=== PATIENT | male | born 2000 | race Caucasian/White ===

== ENCOUNTER 2025-01-31 08:38 | Outpatient (AMB) | payer OTHER, SELFPAY ==
--- NOTE | 2025-01-31 08:40 | A.OFFVIS_ITS ---
Vital Signs 01/31/25 08:50 Height 5 ft 10 in Weight 134 lb 14.766 oz BMI 19.4 BP 115/66 Blood Pressure Location Lt brachial Position Sitting Pulse 84 Pulse Source Pulse Oximeter Intake Visit Reasons: Diarrhea & Gerd Intake Note: Patient new consult for GERD and diarrhea. Patient cc: Physical Testing Supervisor Required: No Accompanied by: Self / Same As Patient Allergies No Known Allergies Allergy (Verified 01/08/25 15:41) Medication List - Last Reconciled 01/31/25 by Romy Klein CNP famotidine 20 mg PO BEDTIME HPI HPI Diarrhea & Gerd: Details: Patient is a 24-year-old male with PMH of acne. Referred by PCP for further evaluation of GERD and diarrhea. Gastroesophageal Reflux Disease (GERD): The GERD symptoms began around six months ago after recovering from a respiratory illness and bronchitis. Symptoms include sharp central chest pain, throat discomfort, mucus expectoration, and previous regurgitation episodes. Famotidine has reduced symptoms, leading to improved appetite and less nausea. Diarrhea: The patient has a life long history of inconsistent bowel patterns with current complaints of mild constipation ( type 2-3) alternating with diarrhea ( Type 6), particularly since the events six months ago. He experiences occasional stomach pain that typically decreases after bowel movements and benefits from diet modification, specifically dairy elimination. Patient denies: fever/chills, n/v, pyrosis, dysphasia, unintentional wt loss or melena/hematochezia. Social hx: -Reports alcohol consumption of two to three beers per week, but abstained over the last eight months. -smokes marijuana few times per week, denies other recreational drug use -non-smoker - family hx as below -denies personal hx of CA -denies significant cardiopulmonary history -tolerated anesthesia in the past without difficulty. [facility] Medical History (Updated 01/31/25 @ 09:52 by Romy Klein CNP) IBS (irritable bowel syndrome) Acid reflux Acne Family History Other No significant family history Physical Exam Vital Signs: Last Vital Signs Pulse 84 01/31/25 08:50 BP 115/66 01/31/25 08:50 BMI result Body Mass Index 19.4 Const General: healthy appearing, no acute distress and well developed Nutritional Appearance: average body habitus Orientation/consciousness: patient oriented x3 HEENT Head: Yes normal to inspection, Yes normocephalic and Yes atraumatic Face and sinus: Yes normal facial exam Eyes General: appearance normal, both eyes and all related structures Neck Neck: Yes normal visual inspection Resp Effort & Inspection: normal respiratory effort, able to speak in complete sentences, no tracheal deviation and symmetric chest movement Auscultation: clear to auscultation bilaterally Cardio Jugular venous distension: no JVD Rate: regular rate Rhythm: regular rhythm Heart sounds: S1 normal heart sound present, S2 normal heart sound present, no gallops and no murmurs GI Inspection: Yes normal to inspection and No distended Palpation (GI): Soft to palpation, not firm, nontender and No hepatosplenomegaly present Auscultation: normal bowel sounds Neuro General: patient oriented x3 Gait exam (Neuro): Normal gait present Psych Appearance: grossly normal Mental Status: mental status grossly normal Speech and movement: Normal speech and movement present Affect: normal affect Attitude: cooperative Thought process: Normal thought process present Thought content: Normal thought content present Insight: Good insight present (Psych) Judgement: Good judgement present (Psych) Assessment & Plan Assessment & Plan (1) Acid reflux: Code(s): K21.9 - Gastro-esophageal reflux disease without esophagitis Category: Medical Qualifiers: Esophagitis presence: esophagitis presence not specified Qualified Code(s): K21.9 - Gastro-esophageal reflux disease without esophagitis Plan: Discussed with the patient the likely diagnoses of GERD, explaining that persistent respiratory infections might contribute to esophageal irritation Additional testing:Schedule H. pylori breath test and an upper endoscopy Medication management:Continue Famotidine for GERD, with the possibility of adding Omeprazole if indicated. Education on GERD prevention : -Advised against heavy meals; encouraged small, frequent meals instead of large ones. - Instructed to remain upright for 2?3 hours after eating. - Advised to avoid late-night meals, spicy foods, caffeine, alcohol, known dietary triggers, and tight-fitting clothing. - Emphasis placed on gradual implementation of lifestyle changes to improve adherence and symptom control. (2) IBS (irritable bowel syndrome): Code(s): K58.9 - Irritable bowel syndrome, unspecified Category: Medical Qualifiers: Irritable bowel syndrome type: other Qualified Code(s): K58.8 - Other irritable bowel syndrome Plan: History of alternating loose stools (type 6) with episodes of constipation (type 2), and gastrointestinal symptom duration consistent with IBS. Additional Testing: None needed immediately; monitor upper endoscopy results for any abnormalities. Medication Management: No new medications initiated. Lifestyle Recommendations: Maintain healthy fiber-rich diet, hydrate adequately, continue exercise, and identify potential dietary triggers linked to stool variability. Plan Next available Follow-up with nursing for H. pylori testing Follow-up 6 weeks with provider or sooner as needed Time: I spent a total of 30 minutes on the date of encounter which includes: Preparing to see the patient (reviewed previous documentation, test results and medical history) Performing a medically appropriate exam and/or evaluation Ordering medications, tests, and procedures Documenting clinical information in the health record Orders: Orders H Pylori Breath Test Today K21.9 - Gastro-esophageal reflux disease without esophagitis Medications: New famotidine 20 mg PO BEDTIME 90 tabs 1RF Coding Level of Care Code New Pt New Pt Level 3 (08082) Patient Type New Diagnoses Gastroesophageal reflux disease, unspecified whether esophagitis present K21.9 Esophagitis presence: esophagitis presence not specified Other irritable bowel syndrome K58.8 Irritable bowel syndrome type: other
[2025-01-31 08:50] VITALS: BP 115/66; PULSE 84; BMI 19.4
== END 2025-01-31 09:27 | disposition home or self-care (01) ==
LOC: HO.HGI 08:38
PROVIDERS: PCP Physician Assistant Medical; Visit Provider Nurse Practitioner Family
DX: K21.9 Gastro-esophageal reflux disease without esophagitis (principal); K58.8 Other irritable bowel syndrome
CPT/HCPCS: 99203

== ENCOUNTER 2025-02-03 08:12 | Outpatient (REF) | payer OTHER, SELFPAY | END 2025-02-03 08:13 | disposition home or self-care (01) | LOC: HO.LNP 08:12 | PROVIDERS: PCP Physician Assistant Medical; Visit Provider Nurse Practitioner Family | DX: K21.9 Gastro-esophageal reflux disease without esophagitis (principal) | CPT/HCPCS: 83013 ==

== ENCOUNTER 2025-02-03 08:12 | Outpatient (AMB) | payer OTHER, SELFPAY ==
--- NOTE | 2025-02-03 08:29 | AM.OFFVISNUR ---
Intake Visit Reasons: h pylori Allergies No Known Allergies Allergy (Verified 01/08/25 15:41) Nursing Note Patient presents for collection of H Pylori breath test. Patient has been fasting for 1 hour (nothing to eat, drink, no chewing gum or smoking) has not taken any antacid medication for at least 2 weeks and has no allergies to artificial sweeteners.?? Assessment & Plan Assessment & Plan (1) IBS (irritable bowel syndrome): Code(s): K58.9 - Irritable bowel syndrome, unspecified Category: Medical Qualifiers: Irritable bowel syndrome type: other Qualified Code(s): K58.8 - Other irritable bowel syndrome (2) Acid reflux: Code(s): K21.9 - Gastro-esophageal reflux disease without esophagitis Category: Medical Qualifiers: Esophagitis presence: esophagitis presence not specified Qualified Code(s): K21.9 - Gastro-esophageal reflux disease without esophagitis Plan Patient presents for collection of H Pylori breath test. Patient has been fasting for 1 hour (nothing to eat, drink, no chewing gum or smoking) has not taken any antacid medication for at least 2 weeks and has no allergies to artificial sweeteners.???This test checks for an overgrowth of bacteria in your stomach. We all have bacteria but some may have more than others. It is treatable. if the test comes back negative there is nothing else to do. If the test result is positive we will treat you with 2 antibiotics and a medication to decrease the acid in your stomach (PPI) for 2 weeks. Two weeks after you have completed the treatment we will retest you to make sure the overgrowth has resolved. Patient Instructions: Process for specimen collection and reason for testing was explained to the patient. Specimen collection. Patient instructed to take a deep breath and then exhale into the blue bag, filling it up as much as possible. Patient instructed to drink a mixture of water and the artificial sweetener with a straw. A 15 minute wait period was observed. Patient instructed to take a deep breath and then exhale into the pink bag, filling it up as much as possible.?? Coding Level of Care Code Established Pt Est Pt Level 1 (02722) Patient Type Established Medical Decision Making Straight Forward Diagnoses Other irritable bowel syndrome K58.8 Irritable bowel syndrome type: other Gastroesophageal reflux disease, unspecified whether esophagitis present K21.9 Esophagitis presence: esophagitis presence not specified
== END 2025-02-03 08:45 | disposition home or self-care (01) ==
LOC: HO.HGI 08:13
PROVIDERS: PCP Physician Assistant Medical; Visit Provider Nurse Practitioner Family
DX: K58.8 Other irritable bowel syndrome (principal); K21.9 Gastro-esophageal reflux disease without esophagitis
CPT/HCPCS: 99499

== ENCOUNTER 2025-03-27 08:31 | Outpatient (AMB) | payer OTHER, SELFPAY ==
--- NOTE | 2025-03-27 08:33 | A.OFFVIS_ITS ---
Vital Signs 03/27/25 08:34 Height 5 ft 10 in Weight 131 lb BMI 18.8 BP 126/64 Blood Pressure Location Rt brachial Position Sitting Pulse 80 Pulse Source Pulse Oximeter Pulse Oximetry (%) 100 Oxygen Delivery Method Room Air Intake Visit Reasons: 6w Intake Note: Patient 6 weeks follow up for acid reflux and Hpylori results Patient cc: Pt denies any GI changes or new sx since last visit. Adoption Social Worker Required: No Accompanied by: Self / Same As Patient Allergies No Known Allergies Allergy (Verified 03/27/25 08:33) Medication List - Last Reconciled 03/27/25 by Romy Klein CNP famotidine 20 mg PO BEDTIME PRN HPI HPI 6w: Details: Patient is a 25-year-old male with PMH of acne. F/u for persistent reflux sx and ongoing change in bowel habits (loose stools/possible IBS-D). Over the past six weeks, pt states heartburn/reflux remains present and is stable, but notes increased nausea lately. Bowel patterns are unchanged, a lternating normal to loose stools (mild diarrhea), typically occurring a few times per week?often after eating?plus abdominal discomfort that improves post- BM; no hematochezia, melena, vomiting, or recent febrile illness. Pt continues famotidine 20mg QHS, with partial relief, and attempts dietary modifications (increased fiber, healthy eating), though no specific food triggers identified. Pt reports adherence to current meds and recommendations. No recent hospitalizations, UC/ED visits, or weight loss. No history of celiac dz or family hx thereof. PCP labs and stool testing for infectious etiologies reportedly completed, but results not yet available in GI chart. [facility] Medical History IBS (irritable bowel syndrome) Acid reflux Acne Family History Other No significant family history Review of Systems Const Reports as per HPI ENT Reports as per HPI Card Reports as per HPI Resp Reports as per HPI GI Reports as per HPI Reports as per HPI Physical Exam Vital Signs: Last Vital Signs Pulse 80 03/27/25 08:34 BP 126/64 03/27/25 08:34 Pulse Ox 100 03/27/25 08:34 Oxygen Delivery Method Room Air 03/27/25 08:34 BMI result Body Mass Index 18.8 Const General: healthy appearing, no acute distress and well developed Nutritional Appearance: average body habitus Orientation/consciousness: patient oriented x3 HEENT Head: Yes normal to inspection, Yes normocephalic and Yes atraumatic Face and sinus: Yes normal facial exam Eyes General: appearance normal, both eyes and all related structures Neck Neck: Yes normal visual inspection Resp Effort & Inspection: normal respiratory effort, able to speak in complete sentences, no tracheal deviation and symmetric chest movement Cardio Jugular venous distension: no JVD GI Inspection: Yes normal to inspection and No distended Palpation (GI): Soft to palpation, not firm, nontender and No hepatosplenomegaly present Auscultation: normal bowel sounds Neuro General: patient oriented x3 Gait exam (Neuro): Normal gait present Psych Appearance: grossly normal Mental Status: mental status grossly normal Speech and movement: Normal speech and movement present Affect: normal affect Attitude: cooperative Thought process: Normal thought process present Thought content: Normal thought content present Insight: Good insight present (Psych) Judgement: Good judgement present (Psych) Assessment & Plan Assessment & Plan (1) IBS (irritable bowel syndrome): Code(s): K58.9 - Irritable bowel syndrome, unspecified Category: Medical Qualifiers: Irritable bowel syndrome type: other Qualified Code(s): K58.8 - Other irritable bowel syndrome Plan: Probable. Persistent postprandial loose stools, mild-moderate severity, no red- flag sx. Lack of complete symptom resolution; incomplete outside workup available; IBD needs exclusion. Additional testing: - Order: CBC, lytes, BUN, Cr, LFTs - Stool calprotectin (to r/o IBD) - Celiac serologies Medications: - No new IBS-D meds at present; pending workup. Lifestyle Recommendations: - Continue dietary fiber as tolerated, optimize bowel regularity; ongoing emphasis on physical activity and hydration. Referrals / Coordination of Care: - labs results requested from PCP office Follow-Up Plan: - F/u via portal as results return; re-eval after EGD or sooner for clinical change. (2) Acid reflux: Code(s): K21.9 - Gastro-esophageal reflux disease without esophagitis Category: Medical Qualifiers: Esophagitis presence: esophagitis presence not specified Qualified Code(s): K21.9 - Gastro-esophageal reflux disease without esophagitis Plan: Stable, with ongoing heartburn; increased nausea. Partial relief with famotidine. Insufficient response to H2RA, ongoing symptoms. H. pylori negative. Additional testing: -EGD scheduling in progress. -ab US to r/o hepatopancreatobiliary etiology. Medications: - Start omeprazole 20 mg PO QD (pref. before 1st meal); review after trial for benefit/tolerability. - Continue famotidine 20 mg QHS PRN for breakthrough symptoms. - [employer] re: optimal dosing/timing of PPI. Lifestyle Recommendations: - Continue lifestyle/dietary measures?avoid aggravating foods, remain upright after eating, avoid overeating, maintain hydration. - Provided education on PPI use. Referrals / Coordination of Care: - Endoscopy: scheduling pending. Follow-Up Plan: - Symptom/medication review after EGD; use pt portal for result updates or earlier if sx worsen. Plan Follow-up endoscopy or sooner as needed Time: I spent a total of 30 minutes on the date of encounter which includes: Preparing to see the patient (reviewed previous documentation, test results and medical history) Performing a medically appropriate exam and/or evaluation Ordering medications, tests, and procedures Documenting clinical information in the health record Orders: Orders Transglutaminase IgA Today R19.5 - Other fecal abnormalities C Reactive Protein Today K58.8 - Other irritable bowel syndrome, R19.5 - Other fecal abnormalities Calprotectin, Fecal Today R19.5 - Other fecal abnormalities TSH reflex Free T4 Today R19.5 - Other fecal abnormalities US abdomen complete Today K21.9 - Gastro-esophageal reflux disease without esophagitis, R11.0 - Nausea Referrals GI Procedure Notification K21.9 - Gastro-esophageal reflux disease without esophagitis Medications: New omeprazole Take one tablet daily. Best taken on an empty, 30 minutes before eating. 20 mg PO DAILY 90 caps 1RF Changed From famotidine 20 mg PO BEDTIME 90 tabs 1RF To famotidine 20 mg PO BEDTIME PRN Coding Level of Care Code Established Pt Est Pt Level 3 (65146) Patient Type Established Diagnoses Other irritable bowel syndrome K58.8 Irritable bowel syndrome type: other Gastroesophageal reflux disease, unspecified whether esophagitis present K21.9 Esophagitis presence: esophagitis presence not specified
[2025-03-27 08:34] VITALS: BP 126/64; PULSE 80; O2SAT 100; BMI 18.8
== END 2025-03-27 09:08 | disposition home or self-care (01) ==
LOC: HO.HGI 08:32
PROVIDERS: PCP Physician Assistant Medical; Visit Provider Nurse Practitioner Family
DX: K58.8 Other irritable bowel syndrome (principal); K21.9 Gastro-esophageal reflux disease without esophagitis
CPT/HCPCS: 99213

== ENCOUNTER 2025-04-22 08:39 | Outpatient (REF) | payer OTHER, SELFPAY | END 2025-04-22 08:40 | disposition home or self-care (01) | LOC: HO.LAB 08:39 | PROVIDERS: PCP Physician Assistant Medical; Visit Provider Nurse Practitioner Family | DX: K58.8 Other irritable bowel syndrome (principal); R19.5 Other fecal abnormalities | CPT/HCPCS: 36415; 84443; 86140; 86364 ==

== ENCOUNTER 2025-04-23 09:38 | Outpatient (REF) | payer OTHER, SELFPAY ==
[2025-04-30 18:09] LABS: Calprotectin, Fecal 89 mcg/g
== END 2025-04-23 09:39 | disposition home or self-care (01) ==
LOC: HO.LNP 09:38
PROVIDERS: Visit Provider Nurse Practitioner Family
DX: R19.5 Other fecal abnormalities (principal)
CPT/HCPCS: 83993

== ENCOUNTER 2025-06-05 10:08 | Outpatient (REF) | payer OTHER, SELFPAY ==
--- NOTE | ~2025-06-05 | US_ITS ---
EXAMINATION: US ABDOMEN COMPLETE CLINICAL INFORMATION: Nausea. COMPARISON: None available. TECHNIQUE: Real-time ultrasound of the abdomen using grayscale technique. FINDINGS: PANCREAS: No peripancreatic fluid collection. ABDOMINAL AORTA: The proximal, mid, and distal segments are normal in caliber. INFERIOR VENA CAVA: Visualized portions are normal. LIVER: Liver measures 14 cm. Coarse echotexture. No nodular surface. No solid or cystic lesion. No intrahepatic biliary ductal dilatation. GALLBLADDER: 3 mm nodular isoechoic abnormality with a broad pedicle attached to the gallbladder wall. No gross vascularity on color Doppler interrogation. No pericholecystic fluid collection or gallbladder wall thickening. COMMON BILE DUCT: 3 mm. RIGHT KIDNEY: 11 cm. Normal echotexture. Renal cortical thickness is normal. No hydronephrosis. No solid or cystic lesion.. LEFT KIDNEY: 11 cm. Normal echotexture. Renal cortical thickness is normal. No hydronephrosis. No solid or cystic lesion.. SPLEEN: 12 cm. No solid or cystic lesion.. FREE FLUID: None. US/US abdomen complete IMPRESSION: Probable 3 mm polyp, gallbladder. Up to normal limits spleen. No hydronephrosis. No ascites. Electronically signed by: Melvin Gil MD 06/05/2025 10:49 AM ANTONI
== END 2025-06-05 10:09 ==
LOC: HO.US 10:08
PROVIDERS: PCP Physician Assistant Medical; Visit Provider Nurse Practitioner Family
DX: K21.9 Gastro-esophageal reflux disease without esophagitis (principal); R11.0 Nausea
CPT/HCPCS: 76700

== ENCOUNTER → 2025-06-05 10:10 | Outpatient (BNV) | payer OTHER, SELFPAY | PROVIDERS: PCP Physician Assistant Medical; Visit Provider Radiology Diagnostic Radiology | DX: K21.9 Gastro-esophageal reflux disease without esophagitis (principal) | CPT/HCPCS: 76700 ==

== ENCOUNTER 2025-06-16 11:34 | Day surgery (SDC) | payer OTHER, SELFPAY ==
--- NOTE | 2025-06-10 13:18 | HO.ANESPROP2 ---
Documented by User: Emily Chinchilla NP 06/10/25 13:19 HPI - Anesthesia Eval Consult details Narrative: 25 yr old male for colonoscopy PMFSH Active Problems Active Problems: All Active Problems (Updated 04/24/25 @ 12:14 by Romy Klein CNP) Elevated anti-tissue transglutaminase (tTG) IgA level (Acute) Loose stools (Acute) IBS (irritable bowel syndrome) (Acute) Acid reflux (Acute) Past Medical History Medical History Celiac disease Elevated anti-tissue transglutaminase (tTG) IgA level Loose stools IBS (irritable bowel syndrome) Acid reflux Acne Family History Family History Other No significant family history Surgical History Surgical History No pertinent past surgical history Social History Social History Patient Tobacco Use Status: Never used Tobacco Use of substances other than those prescribed or required for medical reasons: No Are you DNR?: No Advance Directives: No Advance Directives Information Provided: Yes Meds Allergies Allergy/AdvReac Type Severity Reaction Status Date / Time No Known Allergies Allergy Verified 06/16/25 12:14 Home Medications ?Medication ?Instructions ?Recorded ?Confirmed ?Last Taken ?Type famotidine 20 mg tablet 20 mg PO BEDTIME PRN gerd 03/27/25 06/16/25 Unknown History Assessment and Plan Assessment Anesthesia Assessment: Chart Reviewed Documented by User: Montez Brian MD 06/16/25 12:57 PMFSH Past Medical History Medical History Celiac disease Elevated anti-tissue transglutaminase (tTG) IgA level Loose stools IBS (irritable bowel syndrome) Acid reflux Acne Functional capacity: independent ambulation Family History Family History Other No significant family history Family history of problems with anesthesia: No Surgical History Surgical History No pertinent past surgical history History of Problems with Anesthesia: No Social History Social History Patient Tobacco Use Status: Never used Tobacco Use of substances other than those prescribed or required for medical reasons: No Are you DNR?: No Advance Directives: No Advance Directives Information Provided: Yes Meds Allergies Allergy/AdvReac Type Severity Reaction Status Date / Time No Known Allergies Allergy Verified 06/16/25 12:14 Home Medications ?Medication ?Instructions ?Recorded ?Confirmed ?Last Taken ?Type famotidine 20 mg tablet 20 mg PO BEDTIME PRN gerd 03/27/25 06/16/25 Unknown History Exam Exam Date and Time: 06/16/25 Airway TM Dist: >3cm Loose/Missing/Broken Teeth: No Heart: ok Lungs: ok Other: ok Assessment and Plan Assessment Anesthesia Assessment: Anesthesia Plan Discussed Final Anesthetic Review Family History of Problems with Anesthesia: No History of Problems with Anesthesia: No NPO: Yes ASA Class: I Final Preanesthetic Review: No Changes in Pt Med Stat, Meds/Allgs Chart Reviewed, Consent Obtained/Reviewed and Anes Risks/Benef Reviewed Patient Risk: Low Procedure Risk: Low
[2025-06-11 09:23] VITALS: BMI 18.8
--- NOTE | 2025-06-16 11:53 | MHC.SHP ---
Pre-Procedural Eval Section A - 24 Hr Update-Section A only Date of Service: 06/16/25 Section B - Complete if H&P > 30 days Chief Complaint: GERD Relevant Family History (Specify if Yes): No Relevant Social History: None Present Medications: see Short Stay Collaborative assessment Medical History: Significant History (IBS (irritable bowel syndrome) Acid reflux Acne) History of Previous Operations: No relevant previous surgery Allergies: Allergies Allergy/AdvReac Type Severity Reaction Status Date / Time No Known Allergies Allergy Verified 03/27/25 08:33 Review of Systems Sugical H&P ROS: Negative: Constitution, Cardiovascular and Respiratory and Yes, Specify: Gastrointestinal (GERD) Exam Surgical H&P Exam: Normal: Heart, Normal: Lungs, Normal: Extremities and Normal: Abdomen Plan Diagnosis/Plan: Unchanged I have reviewed the history and physical and performed a pertinent physical examination on my patient. No changes have occurred unless specified. Time Spent With Patient Time: Total time managing care of this patient today ____ minutes.
[2025-06-16 12:17] VITALS: BMI 18.9
[2025-06-16 12:23] VITALS: BP 122/65; PULSE 86; RESP 15; TEMP 37.1; O2SAT 100
[2025-06-16] MEDS: Lactated Ringers 1,000 ML 100 ML IVCONT (12:35)
[2025-06-16 13:42] VITALS: BP 90/43; PULSE 79; RESP 16; TEMP 36.6; O2SAT 97
--- NOTE | 2025-06-16 13:42 | W.PM.OPN ---
Operative Note Operative Note Date of Service: 06/16/25 Narrative: FLEXIBLE TRANSORAL UPPER GASTROINTESTINAL ENDOSCOPY WITH BIOPSIES Pre-op diagnosis: GERD, Celiac disease, IBS Post-op diagnosis: GERD, Gastritis, gastric antral nodule Specimens and Sources: : a- small bowel bxs r/o celiac disease ?b- gastric antrum bxs r/o h pylori ?c- gastric nodule bxs ?d- gastric body bxs ?e- eg junction bxs r/o Rooney's Endoscopist:? Blanca Brandon MD Anesthesia:?MAC UPPER ENDOSCOPY Consent: Indications for the procedure and potential complications of bleeding, perforation, reaction to medications and missed diagnosis were discussed with the patient and informed consent was obtained. Instrument: Olympus GIF H 190 mid size upper endoscope Monitoring: Vital signs and clinical assessment, continuous EKG monitoring, Pulse oximetry, Carbon Dioxide monitoring and blood pressure monitoring were done throughout the procedure. Procedure: The patient was placed in the left lateral decubitis position and pre-procedure medications were administered and a bite block was placed. The endoscope was inserted into the mouth and advanced under direct vision to the third part of duodenum. A careful inspection was made as the upper endoscope was withdrawn including a retroflexed examination of the proximal stomach; Findings and interventions are described below. Findings: Larynx: Normal Esophagus: GE junction at 42 cms. No esophagitis. 1 cms tongue of possible Rooney's - biopsied. Stomach: Mild diffuse gastric erythema - biopsies were obtained from the gastric body and antrum. A 2 cms benign appearing nodule (with normal overlying mucosa) in the antrum - biopsies were obtained Grade 2 flap valve on retroflexed examination of the cardia. Duodenum: Normal bulb and descending duodenum. Biopsies were obtained from 3rd part of the duodenum to check for celiac sprue. Intervention: Biopsies as noted above Impression and Post Procedure Diagnosis: Endoscopy Findings: ESOPHAGUS: STOMACH: DUODENUM: Plan: Pt has a FU appointment on 06/25/25 with Romy Klein NP. Above findings were reviewed with the patient and relevant handouts were given and the discharge area. If biopsies from gastric antral nodule are normal, recommend further evaluation of the lesion with endoscopic ultrasound.
[2025-06-16 13:45] VITALS: BP 86/44; PULSE 76; RESP 16; O2SAT 95
[2025-06-16 14:00] VITALS: BP 101/61; PULSE 66; RESP 16; TEMP 36.1; O2SAT 99
== END 2025-06-16 14:20 | disposition home or self-care (01) ==
PROVIDERS: PCP Physician Assistant Medical; Visit Provider Internal Medicine Gastroenterology
PROC: 0DJ08ZZ Inspection of Upper Intestinal Tract, Via Natural or Artificial Opening Endoscopic (ICD-10-PCS; CPT 43235; principal; 2025-06-16 13:40)
DX: K21.9 Gastro-esophageal reflux disease without esophagitis (principal); K58.9 Irritable bowel syndrome, unspecified; K31.7 Polyp of stomach and duodenum; K29.70 Gastritis, unspecified, without bleeding
CPT/HCPCS: 43239; 88305; 88313; 88342

== ENCOUNTER → 2025-06-16 11:34 | Outpatient (BNV) | payer OTHER, SELFPAY | PROVIDERS: PCP Physician Assistant Medical; Visit Provider Internal Medicine Gastroenterology | DX: K21.9 Gastro-esophageal reflux disease without esophagitis (principal); K29.70 Gastritis, unspecified, without bleeding; K31.7 Polyp of stomach and duodenum | CPT/HCPCS: 43239 ==